=== PATIENT | male | born 1990 | race Caucasian/White ===

== ENCOUNTER 2021-07-19 12:41 | Emergency (ER) | payer OTHER ==
[~2021-07-19] VITALS: Ht 180.3 cm; Wt 102.1 kg
[2021-07-19 12:52] VITALS: BP 145/81
--- NOTE | 2021-07-19 12:52 | NUR ---
"I stepped on my kids toy and twisted Left ankle"
[2021-07-19] MEDS ORDERED: IBUP-1955 PO (13:45)
--- NOTE | 2021-07-19 14:05 | NUR ---
Ankle stirrup and crutches/gait training by Avis. Patient discharged to home in stable condition. Written and verbal after care instructions given. Patient verbalizes understanding of instruction.
== END 2021-07-19 14:07 | disposition home or self-care (01) ==
LOC: ER 12:44
DX: S93.402A Sprain of unspecified ligament of left ankle, initial encounter (principal); S90.02XA Contusion of left ankle, initial encounter; Z79.1 Long term (current) use of non-steroidal anti-inflammatories (NSAID); X50.1XXA Overexertion from prolonged static or awkward postures, initial encounter; Y93.89 Activity, other specified; Y92.89 Other specified places as the place of occurrence of the external cause; Y99.8 Other external cause status
CPT/HCPCS: 73610-TC; 73630-TC